=== PATIENT | male | born 1995 | race Caucasian/White ===

== ENCOUNTER 2019-10-14 16:34 | Emergency (ER) | payer OTHER ==
[~2019-10-14] VITALS: Ht 175.3 cm; Wt 93.0 kg
[2019-10-14 16:47] VITALS: Ht 175.3 cm; Wt 93.0 kg
[2019-10-14 18:03] VITALS: BP 145/90
== END 2019-10-14 18:03 | disposition home or self-care (01) ==
LOC: ED 16:34
DX: S51.851A Open bite of right forearm, initial encounter (principal); W50.3XXA Accidental bite by another person, initial encounter; Y93.89 Activity, other specified; Y92.89 Other specified places as the place of occurrence of the external cause; Y99.8 Other external cause status
CPT/HCPCS: 36415; 90715

== ENCOUNTER 2019-10-25 12:14 | Emergency (ER) | payer MEDICAID, OTHER ==
[~2019-10-25] VITALS: Ht 175.3 cm; Wt 93.0 kg
[2019-10-25 12:19] VITALS: Ht 175.3 cm; Wt 93.0 kg
[2019-10-25 14:02] VITALS: BP 156/91
== END 2019-10-25 14:02 | disposition home or self-care (01) ==
LOC: ED 12:14
DX: S00.81XA Abrasion of other part of head, initial encounter (principal); W10.8XXA Fall (on) (from) other stairs and steps, initial encounter; Y93.89 Activity, other specified; Y92.89 Other specified places as the place of occurrence of the external cause; Y99.8 Other external cause status